=== PATIENT | female | born 1980 | race Caucasian/White ===

== ENCOUNTER 2016-08-14 15:53 | Emergency (ER) | payer OTHER ==
[~2016-08-14] VITALS: Ht 170.2 cm; Wt 60.8 kg
[~2016-08-14 15:53] MED LIST: CHERATUSSIN AC118 ML PO; IBUPROFEN600 MG ORAL; ZITHROMAX250 MG ORAL
[2016-08-14 16:31] VITALS: BP 108/58
[2016-08-14] MEDS ORDERED: Dexamethasone 4mg/ml vial IM ONE (17:15)
[2016-08-14] MEDS ORDERED: AUGMENTIN 875-1 EAC1 ORAL (17:33)
[2016-08-14 17:38] VITALS: BP 104/62
--- NOTE | 2016-08-16 06:57 | Emergency Room Report ---
History of Present Illness General Chief Complaint: Pain Source: Patient Present Illness HPI 35-year-old female presents ED complaining of sore throat and left ear pain. Patient states she was seen at an allergic care clinic 5 days ago was noted to have tonsillitis. Patient was prescribed azithromycin. States that she completed the prescription today, however states that the pain is not improved. Still notes intermittent fevers and chills. Notes some left earache and throat pain. Pain is dull, 3/10, nonradiating. Patient also notes pain with swallowing. Patient states she has frequent history of tonsillitis. Denies cough. Denies sick contacts or recent travel. No other aggravating relieving factors. Denies any other associated symptoms Allergies: Coded Allergies: No Known Allergies (Unverified , 01/25/15) Patient History Past Medical History: none Past Surgical History: none Pertinent Family History: none Social History: Denies: alcohol use, drug use, smoking Last Menstrual Period: 08/03/16 Now: No Immunizations: UTD Reviewed Nursing Documentation: PMH: Agreed, PSxH: Agreed Nursing Documentation-PMH Past Medical History: No Stated History Review of Systems All Other Systems: negative except mentioned in HPI Physical Exam Vital Signs Date Time Temp Pulse Resp B/P Pulse Ox O2 Delivery O2 Flow Rate FiO2 08/14/16 16:31 98.2 70 18 108/58 97 Room Air Sp02 EP Interpretation: reviewed, normal General Appearance: no apparent distress, alert, GCS 15, non-toxic Head: normocephalic, atraumatic Eyes: bilateral eye PERRL, bilateral eye normal inspection ENT: TMs + canals normal, pharyngeal erythema, tonsillar exudate Neck: full range of motion, supple/symm/no masses Respiratory: chest non-tender, lungs clear, normal breath sounds, speaking full sentences Cardiovascular #1: regular rate, rhythm, no edema Gastrointestinal: normal inspection Rectal: deferred Genitourinary: no CVA tenderness Musculoskeletal: normal inspection Neurologic: alert, oriented x3, responsive, motor strength/tone normal, sensory intact, speech normal Psychiatric: normal inspection Skin: normal inspection Lymphatic: normal inspection Medical Decision Making Diagnostic Impression: Primary Impression: Tonsillitis ER Course Hospital Course 35-year-old female presents to ED complaining of persistent sore throat. recently treated with abx Differential diagnoses include: URI, pharyngitis, otitis media Clinical course Patient placed on stretcher. After initial history, physical exam reveals a female in no acute distress. Bilateral TM unremarkable. There is pharyngeal erythema w/ tonsillar exudates. No lymphadenopathy. Consistent with tonsillitis. I explained to the patient that she likely requires another course of antibiotics given persistence of symptoms Given that patient is also complaining of throat tightness and pain with swallowing she would likely benefit from a Decadron shot Given Decadron in ED. We will prescribe her Augmentin Diagnosis - tonsillitis Stable and discharged home with prescriptions for augmentin. Instructed to followup with PMD. return to ED if symptoms recur or worsen Last Vital Signs Date Time Temp Pulse Resp B/P Pulse Ox O2 Delivery O2 Flow Rate FiO2 08/14/16 17:39 98.2 18 108/58 97 Room Air 08/14/16 17:38 74 Status: improved Disposition: HOME, SELF-CARE Condition: Stable Scripts Amoxicillin/Potassium Clav 875-125* (AUGMENTIN 875-125 TABLET*) 1 Each Tablet 1 TAB ORAL TWICE A DAY, #14 TAB Prov: CASTILLO DONATO M.D. 08/14/16 Referrals: [facility],REFERRING (PCP) Patient Instructions: Tonsillitis, [id number] CASTILLO DONATO M.D. Aug 16, 2016 06:57
== END 2016-08-14 17:47 | disposition home or self-care (01) ==
LOC: EMR 16:26
DX: J03.90 Acute tonsillitis, unspecified (principal)
CPT/HCPCS: 96372; 99283; J1100